=== PATIENT | male | born 1980 | race Caucasian/White ===

== ENCOUNTER 2019-02-27 14:39 | Emergency (ER) | payer OTHER ==
[~2019-02-27] VITALS: Ht 193 cm; Wt 97.5 kg
[~2019-02-27 14:39] MED LIST: AMOX500 PO; ASPI325EC; Amoxicillin500 MG PO; CLIN300 PO; CODACE30 PO; CYCL10 PO; HYDACE10B PO; HYDACE5 PO; HYDACE7.5 PO; IBUP200; IBUP600 PO; IBUP800 PO; META800 PO; NAPR500 PO; NAPR550 PO; OXYACE5T PO; PENVK250 PO; PENVK500 PO; PROM25 PO; RXCYCL10 PO; RXHYDACE PO; RXPENVK250 PO; TRAM50 PO
[2019-02-27] MEDS ORDERED: Tamiflu75 MG PO (14:58)
[2019-02-27] MEDS ORDERED: ONDA4ODT MM (14:58)
[2019-02-27] MEDS ORDERED: Norco 5-325 Ta1 EACH PO (14:58)
== END 2019-02-27 15:10 | disposition home or self-care (01) ==
LOC: ER 14:39
DX: J11.1 Influenza due to unidentified influenza virus with other respiratory manifestations (principal); F17.210 Nicotine dependence, cigarettes, uncomplicated
CPT/HCPCS: 99283

== ENCOUNTER → 2019-04-06 | Outpatient (CLI) | payer OTHER ==
[~2019-04-06] MED LIST changes: +Norco 5-325 Ta1 EACH PO; +ONDA4ODT MM; +Tamiflu75 MG PO
== END | disposition home or self-care (01) ==
LOC: OLS 13:25 → LAB SHORT 13:25
DX: R11.2 Nausea with vomiting, unspecified (principal)
CPT/HCPCS: 87338

== ENCOUNTER 2019-07-28 07:35 | Day surgery (SDC) | payer OTHER ==
[~2019-07-28] VITALS: Ht 193 cm; Wt 88.0 kg
--- NOTE | 2019-07-28 08:07 | NUR ---
07/28/19 0807 Rustam Quintero History, Chart, Medications and Allergies reviewed before start of procedure.MONITOR INTACT WITH CONTINUOUS PULSE OXIMETRY AND INTERMITTENT BP.3-LEAD EKG REVIEWED WITH PHYSICIAN PRIOR TO START OF PROCEDURE.O2 VIA N/C INTACT THROUGHOUT SEDATION/PROCEDURE. PATIENT DETERMINED TO BE ASA APPROPRIATE FOR PROPOFOL SEDATION PRIOR TO START OF PROCEDURE BY DR. SOSA.
--- NOTE | 2019-07-28 08:18 | NUR ---
Ambulatory in Day Surgery. History, Chart, Medications and Allergies reviewed before start of procedure. Lungs clear T/O to Auscultation. Patient confirms NPO status and agrees with scheduled surgery. Pre-Op teaching done. Pt verbalizes understanding. Patient States Post-Procedure ride home has been arranged.
[2019-07-28 08:42] LABS: Alanine Aminotransfer (ALT/SGP 44 U/L (12-78); Albumin/Globulin Ratio 1.1 (0.8-1.8); Alk Phos 101 U/L (50-136); Anion Gap 4 mmol/L (6-16); Aspartate Aminotrans (AST/SGOT 25 U/L (12-37); Bilirubin, Total 0.3 mg/dL (0.1-1.0); Blood Urea Nitrogen 12 mg/dL (8-24); Bun/Creatinine Ratio 14.1 (12.0-20.0); CO2, Blood 25 mmol/L (21-32); Calcium, Blood 8.8 mg/dL (8.5-10.1); Chloride, Blood 109 mmol/L (98-108); Creatinine, Blood 0.85 mg/dL (0.60-1.20); Globulin, Blood 3.6 g/dL (2.2-4.0); Glomerular Filtration Rate >60 (60-); Glucose, Blood 97 mg/dL (70-99); Potassium, Blood 3.9 mmol/L (3.5-5.5); Sodium, Blood 138 mmol/L (136-145); Total Protein, Blood 7.6 g/dL (6.4-8.2)
--- NOTE | 2019-07-28 09:30 | NUR ---
Discharge instructions reviewed with patient. Patient verbalizes understanding. Copy given to patient to take home. Patient up to Ambulate independently. Gait steady. Discharged via wheelchair to private car for ride home.
[2019-07-29 20:11] LABS: T-TRANSGLUTAMINASE (TTG) IGA <2 U/mL (0-3); T-TRANSGLUTAMINASE (TTG) IGG <2 U/mL (0-5)
== END 2019-07-28 23:13 | disposition home or self-care (01) ==
LOC: ORSCMMR 07:35 → ORD 08:30 → ORSCMMR 08:30
PROVIDERS: Internal Medicine Gastroenterology
PROC: 0DB58ZX Excision of Esophagus, Via Natural or Artificial Opening Endoscopic, Diagnostic (ICD-10-PCS; principal; 2019-07-28 08:30)
PROC: 0DB98ZX Excision of Duodenum, Via Natural or Artificial Opening Endoscopic, Diagnostic (ICD-10-PCS; principal; 2019-07-28 08:30)
PROC: 0DB78ZX Excision of Stomach, Pylorus, Via Natural or Artificial Opening Endoscopic, Diagnostic (ICD-10-PCS; principal; 2019-07-28 08:30)
DX: R11.2 Nausea with vomiting, unspecified (principal); K29.70 Gastritis, unspecified, without bleeding; B96.81 Helicobacter pylori [H. pylori] as the cause of diseases classified elsewhere; R10.13 Epigastric pain; F17.210 Nicotine dependence, cigarettes, uncomplicated
CPT/HCPCS: 80053; 83516; 84443; 88305; 88342; J2250; J2704; J7120

== ENCOUNTER 2020-01-10 15:36 | Emergency (ER) | payer OTHER ==
[~2020-01-10] VITALS: Ht 193 cm; Wt 72.6 kg
[2020-01-10] MEDS ORDERED: IBUP800 PO (17:07)
[2020-01-10] MEDS ORDERED: AMOCLA875 PO (17:07)
== END 2020-01-10 17:35 | disposition home or self-care (01) ==
LOC: ER 15:36
DX: S61.552A Open bite of left wrist, initial encounter (principal); F17.200 Nicotine dependence, unspecified, uncomplicated; W54.0XXA Bitten by dog, initial encounter
CPT/HCPCS: 29125; 73110; 99283-25